=== PATIENT | female | born 1985 | race American Indian/Alaskan Native ===

== ENCOUNTER 2017-09-20 14:53 | Inpatient (IN) | payer MEDICAID ==
[2017-09-20 15:58] LABS: Basophils # (Auto) 0.1 K/mm3 (0.0-0.1); Basophils % (Auto) 0.6 % (0.0-1.8); Eosinophils % (Auto) 0.5 % (0.0-4.3); Lymphocytes # (Auto) 3.3 K/mm3 (1.2-5.4); Lymphocytes % (Auto) 37.3 % (13.4-35.0); Mean Corpuscular HGB Conc 31 % (30-34); Mean Corpuscular Volume 78 fl (79-97); Monocytes # (Auto) 0.7 K/mm3 (0.0-0.8); Monocytes % (Auto) 7.5 % (0.0-7.3); Platelet Count 574 K/mm3 (140-440); Red Blood Count 2.47 M/mm3 (3.65-5.03)
[2017-09-20 16:05] LABS: Hematocrit 19.1 % (30.3-42.9); Hemoglobin 5.9 gm/dl (10.1-14.3); Mean Corpuscular Hemoglobin 24 pg (28-32)
[2017-09-20 16:06] LABS: Red Cell Distribution Width 20.2 % (13.2-15.2)
--- NOTE | 2017-09-20 16:26 | Emergency Department Report ---
ED Female HPI - General Chief complaint: Vaginal Bleeding Stated complaint: VAGINAL BLEEDING Time Seen by Provider: 09/20/17 16:17 Source: patient, RN notes reviewed Mode of arrival: Ambulatory Limitations: No Limitations - History of Present Illness Initial comments: This is a 32-year-old female. The patient is previously on known to this provider, she does not have a private primary care doctor, and she does not have a private marshmallow maker. She presents to the ER with complaint of painless vaginal bleeding for months. It is constant. It does not radiate anywhere. She denies irritative and obstructive urinary symptoms. She complains of shortness of breath, weakness, lightheadedness, and indicates "I need a blood transfusion." MD Complaint: vaginal bleeding -: Gradual, month(s) Consistency: constant Improves with: none Worsens with: none Are you Now?: No Associated Symptoms: vaginal bleeding, shortness of breath, weakness. denies: vaginal discharge, abdominal pain, nausea/vomiting, fever/chills, headaches, loss of appetite, dysuria, hematuria, rash, seizure - Related Data Sexually active: Yes Previous Rx's Medication Instructions Recorded Last Taken Type medroxyPROGESTERone ACETATE 10 mg PO QDAY@2200 #20 tablet 03/20/14 Unknown Rx [Provera] Allergies Allergy/AdvReac Type Severity Reaction Status Date / Time No Known Allergies Allergy Unverified 03/19/14 09:40 ED Review of Systems ROS: Stated complaint: VAGINAL BLEEDING Other details as noted in HPI Comment: All other systems reviewed and negative ED Past Medical Hx - Past Medical History Hx Hypertension: No Hx Congestive Heart Failure: No Hx Diabetes: No Hx Asthma: No Hx COPD: No Additional medical history: anemia,profuse vaginal bleed - Social History Smoking Status: Never Smoker Substance Use Type: None - Medications Home Medications: Home Medications Medication Instructions Recorded Confirmed Last Taken Type medroxyPROGESTERone ACETATE 10 mg PO QDAY@2200 #20 tablet 03/20/14 Unknown Rx [Provera] ED Physical Exam - General Limitations: No Limitations General appearance: alert, in no apparent distress - Head Head exam: Present: atraumatic, normocephalic - Eye Eye exam: Present: normal appearance, EOMI, other (the conjunctiva are pale). Absent: nystagmus - ENT ENT exam: Present: normal exam, normal orophraynx, mucous membranes moist, normal external ear exam - Neck Neck exam: Present: normal inspection, full ROM - Respiratory Respiratory exam: Present: normal lung sounds bilaterally. Absent: respiratory distress - Cardiovascular Cardiovascular Exam: Present: normal rhythm, tachycardia, normal heart sounds. Absent: systolic murmur, diastolic murmur, rubs, gallop - GI/Abdominal GI/Abdominal exam: Present: soft, normal bowel sounds. Absent: distended, tenderness, guarding, rebound, rigid, pulsatile mass - Extremities Exam Extremities exam: Present: normal inspection, full ROM, normal capillary refill. Absent: pedal edema, joint swelling, calf tenderness - Back Exam Back exam: Present: normal inspection, full ROM. Absent: tenderness, CVA tenderness (R), paraspinal tenderness, vertebral tenderness - Neurological Exam Neurological exam: Present: alert, oriented X3, CN II-XII intact, other ( Extraocular movements intact. Tongue midline. No facial droop. Facial sensation intact to light touch in the V1, V2, V3 distribution bilaterally. 5 and 5 strength in 4 extremities.. Sensation is intact to light touch in 4 extremities.). Absent: motor sensory deficit - Psychiatric Psychiatric exam: Present: normal affect, normal mood - Skin Skin exam: Present: warm, dry, intact, normal color. Absent: rash ED Course Vital Signs 09/20/17 09/20/17 09/20/17 15:29 17:20 17:21 Temperature 98.8 F Pulse Rate 106 H 103 H Respiratory 16 17 16 Rate Blood Pressure 131/73 Blood Pressure 132/76 [Left] O2 Sat by Pulse 100 100 100 Oximetry ED Medical Decision Making - Lab Data Result diagrams: 09/20/17 15:36 Vital Signs (72 hours) 09/20/17 09/20/17 09/20/17 15:29 17:20 17:21 Temperature 98.8 F Pulse Rate 106 H 103 H Respiratory 16 17 16 Rate Blood Pressure 131/73 Blood Pressure 132/76 [Left] O2 Sat by Pulse 100 100 100 Oximetry Lab Results 09/20/17 09/20/17 09/20/17 Range/Units 14:11 15:36 15:36 WBC 8.8 (4.5-11.0) K/mm3 RBC 2.47 L (3.65-5.03) M/mm3 Hgb 5.9 L* (10.1-14.3) gm/dl Hct 19.1 L* (30.3-42.9) % MCV 78 L (79-97) fl MCH 24 L (28-32) pg MCHC 31 (30-34) % RDW 20.2 H (13.2-15.2) % Plt Count 574 H (140-440) K/mm3 Lymph % (Auto) 37.3 H (13.4-35.0) % [place] % (Auto) 7.5 H (0.0-7.3) % Eos % (Auto) 0.5 (0.0-4.3) % Baso % (Auto) 0.6 (0.0-1.8) % Lymph # 3.3 (1.2-5.4) K/mm3 [place] # 0.7 (0.0-0.8) K/mm3 Eos # 0.0 (0.0-0.4) K/mm3 Baso # 0.1 (0.0-0.1) K/mm3 Seg Neutrophils % 54.1 (40.0-70.0) % Seg Neutrophils # 4.8 (1.8-7.7) K/mm3 HCG, Quant < 2 (0-4) mIU/mL Urine Color [place] (Yellow) Urine Turbidity Clear (Clear) Urine pH 6.0 (5.0-7.0) Ur Specific [place] 1.024 (1.003-1.030) Urine Protein 100 mg/dl (Negative) mg/dL Urine Glucose (UA) Neg (Negative) mg/dL Urine Ketones Neg (Negative) mg/dL Urine Blood Lg (Negative) Urine Nitrite Pos (Negative) Urine Bilirubin Neg (Negative) Urine Ictotest Not Reportable Urine Urobilinogen 4.0 (<2.0) mg/dL Ur Leukocyte Esterase Neg (Negative) Urine WBC (Auto) > 182.0 H (0.0-6.0) /HPF Urine RBC (Auto) > 182.0 (0.0-6.0) /HPF U Epithel Cells (Auto) 14.0 H (0-13.0) /HPF Urine Bacteria (Auto) 2+ (Negative) /HPF Urine WBC Clumps 2+ /HPF Urine Mucus Few /HPF Urine Yeast (Budding) 3+ /HPF Blood Type Antibody Screen Crossmatch 09/20/17 Range/Units 15:36 WBC (4.5-11.0) K/mm3 RBC (3.65-5.03) M/mm3 Hgb (10.1-14.3) gm/dl Hct (30.3-42.9) % MCV (79-97) fl MCH (28-32) pg MCHC (30-34) % RDW (13.2-15.2) % Plt Count (140-440) K/mm3 Lymph % (Auto) (13.4-35.0) % [place] % (Auto) (0.0-7.3) % Eos % (Auto) (0.0-4.3) % Baso % (Auto) (0.0-1.8) % Lymph # (1.2-5.4) K/mm3 [place] # (0.0-0.8) K/mm3 Eos # (0.0-0.4) K/mm3 Baso # (0.0-0.1) K/mm3 Seg Neutrophils % (40.0-70.0) % Seg Neutrophils # (1.8-7.7) K/mm3 HCG, Quant (0-4) mIU/mL Urine Color (Yellow) Urine Turbidity (Clear) Urine pH (5.0-7.0) Ur Specific [place] (1.003-1.030) Urine Protein (Negative) mg/dL Urine Glucose (UA) (Negative) mg/dL Urine Ketones (Negative) mg/dL Urine Blood (Negative) Urine Nitrite (Negative) Urine Bilirubin (Negative) Urine Ictotest Urine Urobilinogen (<2.0) mg/dL Ur Leukocyte Esterase (Negative) Urine WBC (Auto) (0.0-6.0) /HPF Urine RBC (Auto) (0.0-6.0) /HPF U Epithel Cells (Auto) (0-13.0) /HPF Urine Bacteria (Auto) (Negative) /HPF Urine WBC Clumps /HPF Urine Mucus /HPF Urine Yeast (Budding) /HPF Blood Type A POSITIVE Antibody Screen Negative Crossmatch See Detail - Radiology Data Radiology results: pending - Medical Decision Making Differential diagnosis, including but not limited to: Symptomatic anemia, vaginal bleeding, menorrhagia, METROrrhagia, dysfunctional uterine bleeding Assessment and plan: 32-year-old female who is not , with symptomatic anemia, microcytic, hemoglobin, hematocrit 5/19 respectively. She is tachycardic, and therefore meets criteria for class II, class III hemorrhage. She is hemodynamically stable and protecting her airway at this time. She is amenable to packed red blood cell transfusion. Pelvic ultrasound interpretation is pending at this time. Case presented to gynecology on-call, Dr. Bernal, she accepted the patient to her service for symptomatic vaginal bleeding. Critical care attestation.: If time is entered above; I have spent that time in minutes in the direct care of this critically ill patient, excluding procedure time. ED Disposition Clinical Impression: Vaginal bleeding, Anemia Disposition: DC-09 OP ADMIT IP TO THIS HOSP Is pt being admited?: Yes Condition: Good
[2017-09-20 16:55] LABS: Bacteria,Urine 2+ /HPF (Negative)
[2017-09-20] MEDS ORDERED: NACL 0.9% 500 ML 500 ML IV ONE (17:12)
[2017-09-20 17:14] LABS: Bilirubin,Urine NEG (Negative); Blood,Urine LG (Negative); Color,Urine Amber (Yellow); Mucus,Urine FEW /HPF; RBC,Urine > 182.0 /HPF (0.0-6.0); WBC,Urine > 182.0 /HPF (0.0-6.0)
--- NOTE | 2017-09-20 20:43 | Ultrasound Report ---
FINAL REPORT PROCEDURE: US TRANSVAGINAL TECHNIQUE: Real-time transvaginal sonography in multiple planes of the pelvis was performed with image documentation. This examination was performed without Doppler. Vascular abnormalities, including ovarian torsion, will not be detectable without Doppler evaluation. CPT 00480 HISTORY: heavy vaginal bleed COMPARISON: No prior studies are available for comparison. FINDINGS: UTERUS Size: 8.2 x 4.4 x 5.5 cm. Endometrial thickness: mm. Orientation: 14. Cervix: Normal. Fibroids/masses: None. RIGHT Ovary: 4.4 x 3.3 x 4.1 cm. Appearance: Normal. LEFT Ovary: 3.9 x 2.1 x 2.8 cm. Appearance: Normal. Pelvic fluid: None. Other: None. IMPRESSION: Endometrium is 14 millimeters in thickness. Otherwise negative study..
[2017-09-21 06:32] LABS: Hemoglobin 7.7 gm/dl (10.1-14.3)
--- NOTE | 2017-09-21 08:26 | Ultrasound Report ---
FINAL REPORT EXAM: US PELVIC COMPLETE HISTORY: heavy vaginal bleed TECHNIQUE: Transabdominal pelvic ultrasound. Transabdominal scanning was performed in conjunction with a transvaginal study. PRIORS: None. FINDINGS: Please refer to transvaginal exam report for entire interpretation. This report is for transabdominal exam only. Pelvic structures are poorly visualized on transabdominal imaging. Grossly no fluid collection or mass seen. Pelvic structures are not discretely visualized. IMPRESSION: Limited transabdominal pelvic ultrasound exam. Grossly no abnormal fluid collection or mass seen. Pelvic structures are not discretely visualized. Please refer to transvaginal pelvic ultrasound report for full evaluation.
[2017-09-21 10:07] VITALS: BP 117/75
--- NOTE | 2017-09-21 12:50 | History and Physical Report ---
History of Present Illness Date of examination: 09/21/17 Date of admission: 09/20/17 22:46 Chief complaint: vaginal bleeding and severe anemia History of present illness: This is a 32 yo G P came to Er complaining of vaginal bleeding and CBC hemoglobin 5. Past History Past Medical History: no pertinent history Past Surgical History: no surgical history Family/Genetic History: none Social history: no significant social history, single. denies: smoking, alcohol abuse, prescription drug abuse Medications and Allergies Allergies Allergy/AdvReac Type Severity Reaction Status Date / Time No Known Allergies Allergy Unverified 03/19/14 09:40 Home Medications Medication Instructions Recorded Confirmed Last Taken Type medroxyPROGESTERone ACETATE 10 mg PO QDAY@2200 #20 tablet 03/20/14 09/20/17 Unknown Rx [Provera] Review of Systems All systems: negative Genitourinary: vaginal bleeding - Vital Signs Vital signs: Vital Signs Temp Pulse Resp BP Pulse Ox 98.8 F 106 H 16 131/73 100 09/20/17 15:29 09/20/17 15:29 09/20/17 15:29 09/20/17 15:29 09/20/17 15:29 Temp Pulse Resp BP Pulse Ox 98.3 F 77 18 117/75 98 09/21/17 08:19 09/21/17 08:19 09/21/17 08:19 09/21/17 08:19 09/21/17 08:19 - Physical Exam Breasts: Positive: deferred Cardiovascular: Regular rate, Normal S1 Lungs: Positive: Clear to auscultation, Normal air movement Abdomen: Positive: normal appearance, soft, normal bowel sounds. Negative: distention, tenderness, guarding Genitourinary (Female): Positive: normal external genitalia, normal perenium Cervix: Negative: lesion Uterus: Positive: normal size, normal contour Anus/Rectum: Positive: normal perianal skin, heme negative Extremities: Positive: normal Deep Tendon Reflex Grade: Normal +2 Results Result Diagrams: 09/21/17 05:59 Abnormal lab results 09/20/17 09/20/17 09/20/17 Range/Units 14:11 15:36 15:36 RBC 2.47 L (3.65-5.03) M/mm3 Hgb 5.9 L* (10.1-14.3) gm/dl Hct 19.1 L* (30.3-42.9) % MCV 78 L (79-97) fl MCH 24 L (28-32) pg RDW 20.2 H (13.2-15.2) % Plt Count 574 H (140-440) K/mm3 Lymph % (Auto) 37.3 H (13.4-35.0) % [place] % (Auto) 7.5 H (0.0-7.3) % Urine WBC (Auto) > 182.0 H (0.0-6.0) /HPF U Epithel Cells (Auto) 14.0 H (0-13.0) /HPF Crossmatch See Detail 09/21/17 Range/Units 05:59 RBC (3.65-5.03) M/mm3 Hgb 7.7 L (10.1-14.3) gm/dl Hct 25.0 L (30.3-42.9) % MCV (79-97) fl MCH (28-32) pg RDW (13.2-15.2) % Plt Count (140-440) K/mm3 Lymph % (Auto) (13.4-35.0) % [place] % (Auto) (0.0-7.3) % Urine WBC (Auto) (0.0-6.0) /HPF U Epithel Cells (Auto) (0-13.0) /HPF Crossmatch All other labs normal. Ultrasound: report reviewed Assessment and Plan A/P Menorrhagia, DUB, Severe anemia CBC 5 to 7.7 s/p blood transfusion US reviewed to be normal with thickened embx. - cristobal scheduled embx next week iron tid discussed tx which include mirena, ocps, progesterone, depo, novasure and surgical d/c home after blood transfusion with f/u next week
--- NOTE | 2017-09-21 13:50 | Discharge Summary ---
Providers - Providers Date of Admission: 09/20/17 22:46 Date of discharge: 09/21/17 Attending physician: ANDRY MATOS MD 09/20/17 17:13 Consult to Physician [CONS] Urgent Comment: Consulting Provider: ANDRY MATOS Physician Instructions: Reason For Exam: symptomatic anemia Primary care physician: [employer] Hospitalization Reason for admission: other (dub, severe anemia ) Hospital course: laz was admitted and received 2 U pRBC hemoglobin 5 to 7.7. patient felt better. vss. will f/u in office for embx and discuss furhter treatment Condition at discharge: Good Disposition: DC-01 TO HOME OR SELFCARE Plan - Provider Discharge Summary Activity: routine Diet: routine Instructions: routine Additional instructions: [] Smoking cessation referral if applicable(refer to patient education folder for contact #) [] Refer to [facility] Booklet Call your doctor immediately for: * Fever > 100.5 * Heavy vaginal bleeding ( >1 pad per hour) * Severe persistent headache * Shortness of breath * Reddened, hot, painful area to leg or breast * Drainage or odor from incision. * Keep incision clean and dry at all times and follow doctor's instructions regarding bathing/showering - Follow up plan Follow up: PRIMARY CARE, [Primary Care Provider] - ANDRY MATOS MD [Staff Physician] - 7 Days
== END 2017-09-21 16:30 | disposition home or self-care (01) | DRG 761 ==
LOC: ED 14:53 → OB 22:46
PROVIDERS: ADMIT Obstetrics & Gynecology; ATTEND Obstetrics & Gynecology
PROC: 30233N1 Transfusion of Nonautologous Red Blood Cells into Peripheral Vein, Percutaneous Approach (ICD-10-PCS; principal; 2017-09-20)
DX: N92.0 Excessive and frequent menstruation with regular cycle (principal); N93.9 Abnormal uterine and vaginal bleeding, unspecified; D64.9 Anemia, unspecified
CPT/HCPCS: 36415; 76830; 76856; 81001; 84702; 85014; 85018; 85025; 86850; 86900; 86901; 86920; J7040; P9016

== ENCOUNTER 2017-10-22 05:48 | Emergency (ER) | payer MEDICAID ==
[2017-10-22 06:56] LABS: Basophils % (Auto) 0.3 % (0.0-1.8); Eosinophils # (Auto) 0.1 K/mm3 (0.0-0.4); Eosinophils % (Auto) 0.8 % (0.0-4.3); Hematocrit 21.5 % (30.3-42.9); Hemoglobin 6.5 gm/dl (10.1-14.3); Lymphocytes # (Auto) 2.9 K/mm3 (1.2-5.4); Lymphocytes % (Auto) 35.9 % (13.4-35.0); Mean Corpuscular HGB Conc 30 % (30-34); Mean Corpuscular Volume 71 fl (79-97); Monocytes # (Auto) 0.7 K/mm3 (0.0-0.8); Monocytes % (Auto) 8.7 % (0.0-7.3); Platelet Count 650 K/mm3 (140-440); Red Blood Count 3.02 M/mm3 (3.65-5.03)
[2017-10-22 06:58] LABS: Mean Corpuscular Hemoglobin 22 pg (28-32); Red Cell Distribution Width 24.2 % (13.2-15.2)
[2017-10-22 07:07] LABS: INR 1.23 (0.87-1.13)
[2017-10-22 07:17] LABS: Alanine Aminotransferase 15 units/L (7-56); Albumin 3.8 g/dL (3.9-5); BUN/Creatinine Ratio 22; Blood Urea Nitrogen 11 mg/dL (7-17); Calcium 8.6 mg/dL (8.4-10.2); Hemolysis Index 1
[2017-10-22 07:18] LABS: Bacteria,Urine 1+ /HPF (Negative); Bilirubin,Urine NEG (Negative); Blood,Urine LG (Negative); Color,Urine Yellow (Yellow); Mucus,Urine FEW /HPF; Urobilinogen,Urine < 2.0 mg/dL (<2.0)
[2017-10-22] MEDS ORDERED: NORCO 5/325 PO ONE (07:26)
[2017-10-22] MEDS ORDERED: FLEXERIL PO ONE (07:26)
[2017-10-22] MEDS ORDERED: MOTRIN PO ONE (07:26)
--- NOTE | 2017-10-22 07:35 | Emergency Department Report ---
HPI - General Chief Complaint: Extremity Injury, Lower Time Seen by Provider: 10/22/17 07:18 - HPI HPI: Room 7 The patient is a 32-year-old female presenting with a chief complaint of right thigh pain and swelling. The patient states she awakened with pain to the anterior right thigh today. Patient denies any preceding trauma. Patient states touching the thigh causes pain. Patient denies fever nausea or vomiting. The patient gives her pain score of 8/10 Location: Right thigh Duration: One day Quality: Pain Severity: 8/10 Modifying factors: [see above] Context: [see above] Mode of transportation: [not driving] ED Past Medical Hx - Past Medical History Previous Medical History?: Yes Additional medical history: anemia,profuse vaginal bleed - Surgical History Past Surgical History?: Yes - Family History Family history: no significant - Social History Smoking Status: Never Smoker Substance Use Type: None (denies illicit drug use) - Medications Home Medications: Home Medications Medication Instructions Recorded Confirmed Last Taken Type medroxyPROGESTERone ACETATE 10 mg PO QDAY@2200 #20 tablet 03/20/14 09/20/17 Unknown Rx [Provera] Ferrous Sulfate 325 mg PO TID #60 tablet. 09/21/17 Unknown Rx Cyclobenzaprine [Flexeril] 10 mg PO TID PRN #10 tablet 10/22/17 Unknown Rx HYDROcodone/APAP 5-325 [[place] 1 - 2 each PO Q6HR PRN #10 tablet 10/22/17 Unknown Rx 5/325] Ibuprofen [Motrin 800 MG tab] 800 mg PO Q8HR PRN #20 tablet 10/22/17 Unknown Rx ED Review of Systems ROS: Stated complaint: LEG PAIN Other details as noted in HPI Constitutional: denies: fever Eyes: denies: eye pain ENT: denies: throat pain Cardiovascular: denies: chest pain Gastrointestinal: denies: abdominal pain Genitourinary: denies: dysuria Musculoskeletal: myalgia. denies: back pain Neurological: denies: headache Physical Exam - Physical Exam Vital Signs: Vital Signs 10/22/17 05:48 Temperature 98.0 F Pulse Rate 92 H Respiratory 18 Rate Blood Pressure 156/70 O2 Sat by Pulse 99 Oximetry Physical Exam: GENERAL: The patient is well-developed well-nourished female lying on stretcher not appearing to be in acute distress. [] HEENT: Normocephalic. Atraumatic. Extraocular motions are intact. Patient has moist mucous membranes. NECK: Supple. Trachea midline CHEST/LUNGS: Clear to auscultation. There is no respiratory distress noted. HEART/CARDIOVASCULAR: Regular. There is no tachycardia. There is no gallop rub or murmur. ABDOMEN: Abdomen is soft, nontender. Patient has normal bowel sounds. There is no abdominal distention. SKIN: There is no rash. There is no edema. There is no diaphoresis. There is no evidence of cellulitis or increased warmth. NEURO: The patient is awake, alert, and oriented. The patient is cooperative. The patient has normal speech MUSCULOSKELETAL: There is tenderness of the right thigh to touch. There is no evidence of acute injury. ED Course Vital Signs 10/22/17 05:48 Temperature 98.0 F Pulse Rate 92 H Respiratory 18 Rate Blood Pressure 156/70 O2 Sat by Pulse 99 Oximetry ED Medical Decision Making - Lab Data Result diagrams: 10/22/17 06:04 10/22/17 06:04 Laboratory Tests 10/22/17 10/22/17 10/22/17 06:04 06:04 06:04 WBC 8.2 RBC 3.02 L Hgb 6.5 L Hct 21.5 L MCV 71 L MCH 22 L MCHC 30 RDW 24.2 H Plt Count 650 H Lymph % (Auto) 35.9 H [place] % (Auto) 8.7 H Eos % (Auto) 0.8 Baso % (Auto) 0.3 Lymph # 2.9 [place] # 0.7 Eos # 0.1 Baso # 0.0 Seg Neutrophils % 54.3 Seg Neutrophils # 4.4 PT 16.2 H INR 1.23 H D-Dimer 188.57 Sodium 141 Potassium 4.4 Chloride 103.7 Carbon Dioxide 25 Anion Gap 17 BUN 11 Creatinine 0.5 L Estimated GFR > 60 BUN/Creatinine Ratio 22 Glucose 109 H Calcium 8.6 Total Bilirubin < 0.20 AST 13 ALT 15 Alkaline Phosphatase 76 Total Creatine Kinase Total Protein 6.7 Albumin 3.8 L Albumin/Globulin Ratio 1.3 Urine Color Urine Turbidity Urine pH Ur Specific [place] Urine Protein Urine Glucose (UA) Urine Ketones Urine Blood Urine Nitrite Urine Bilirubin Urine Urobilinogen Ur Leukocyte Esterase Urine WBC (Auto) Urine RBC (Auto) U Epithel Cells (Auto) Urine Bacteria (Auto) Urine Mucus 10/22/17 10/22/17 06:05 Unknown WBC RBC Hgb Hct MCV MCH MCHC RDW Plt Count Lymph % (Auto) [place] % (Auto) Eos % (Auto) Baso % (Auto) Lymph # [place] # Eos # Baso # Seg Neutrophils % Seg Neutrophils # PT INR D-Dimer Sodium Potassium Chloride Carbon Dioxide Anion Gap BUN Creatinine Estimated GFR BUN/Creatinine Ratio Glucose Calcium Total Bilirubin AST ALT Alkaline Phosphatase Total Creatine Kinase 59 Total Protein Albumin Albumin/Globulin Ratio Urine Color Yellow Urine Turbidity Hazy Urine pH 5.0 Ur Specific Loyal 1.029 Urine Protein 100 mg/dl Urine Glucose (UA) Neg Urine Ketones Neg Urine Blood Lg Urine Nitrite Neg Urine Bilirubin Neg Urine Urobilinogen < 2.0 Ur Leukocyte Esterase Mod Urine WBC (Auto) 68.0 H Urine RBC (Auto) 9.0 U Epithel Cells (Auto) 43.0 H Urine Bacteria (Auto) 1+ Urine Mucus Few - Radiology Data Radiology results: report reviewed (right lower extremity Doppler), image reviewed (right lower extremity Doppler, right hip x-ray) interpreted by me: Right hip x-ray-no acute fracture CHARY COLLINS Female : 1985 MedRec# [id number] 10/22/17 08:50 - Radiology Dept. Note by ARCHANA RHOADES [facility] Num: [id number] : 1985 Patient Age: 32 VASCULAR LAB.PRELIMINARY REPORT. RLE VENOUS DUPLEX DONE BEDSIDE. NO EVIDENCE OF DVT/SVT IN VESSELS VISUALIZED. Initialized on 10/22/17 08:50 - END OF NOTE - Differential Diagnosis rhabdomyolysis, DVT, osteoarthritis, Critical care attestation.: If time is entered above; I have spent that time in minutes in the direct care of this critically ill patient, excluding procedure time. ED Disposition Clinical Impression: Anemia, Right thigh pain Disposition: DC-01 TO HOME OR SELFCARE Is pt being admited?: No Does the pt Need Aspirin: No Condition: Stable Additional Instructions: Return to the emergency department immediately should you develop worsening symptoms, fever, inability to tolerate food or liquid or any other concerns. Prescriptions: Cyclobenzaprine [Flexeril] 10 mg PO TID PRN #10 tablet PRN Reason: Muscle Spasm HYDROcodone/APAP 5-325 [[place] 5/325] 1 - 2 each PO Q6HR PRN #10 tablet PRN Reason: Pain Ibuprofen [Motrin 800 MG tab] 800 mg PO Q8HR PRN #20 tablet PRN Reason: Pain Referrals: PRIMARY CAREMD [Primary Care Provider] - 3-5 Days ARVIND SLAUGHTER MD [Staff Physician] - 3-5 Days (Dr. Slaughter is an orthopedic surgeon. Please follow up with him for further evaluation) Time of Disposition: 09:51
[2017-10-22 09:52] VITALS: BP 132/60
--- NOTE | 2017-10-22 11:20 | XRay Report ---
RIGHT HIP RADIOGRAPHS INDICATION: Pain. COMPARISON: None similar. FINDINGS: An AP pelvic radiograph with frog-leg projection of the right hip demonstrate intact articulation. Imaged bilateral SI and hip joints appear intact. Nonobstructive bowel gas pattern. CONCLUSION: No acute hip radiographic abnormality. An IUD incidentally noted. Thank you for the opportunity to participate in this patient's care.
== END 2017-10-22 10:38 | disposition home or self-care (01) ==
LOC: ED 05:48
DX: M79.651 Pain in right thigh (principal); D64.9 Anemia, unspecified
CPT/HCPCS: 36415; 80053; 81001; 82550; 85025; 85379; 85610